=== PATIENT | male | born 1980 | race American Indian/Alaskan Native ===

== ENCOUNTER 2017-06-03 09:13 | Emergency (ER) | payer OTHER ==
[~2017-06-03] VITALS: Ht 185.4 cm; Wt 83.5 kg
[~2017-06-03 09:13] MED LIST: BACTRIM DS TAB1 EACH PO; IBUPROFEN800 MG PO; KEFLEX500 MG PO; NORCO 5-325 TA1 EACH PO
[2017-06-03] MEDS ORDERED: LAMISIL AT12 GM TOP (09:33)
== END 2017-06-03 09:40 | disposition home or self-care (01) ==
LOC: ED 09:13
DX: Z00.8 Encounter for other general examination (principal)

== ENCOUNTER 2021-02-04 21:13 | Emergency (ER) | payer OTHER ==
[~2021-02-04] VITALS: Ht 185.4 cm; Wt 90.7 kg
[~2021-02-04 21:13] MED LIST changes: +LAMISIL AT12 GM TOP
[2021-02-04] MEDS ORDERED: HYDROCODON-ACE1 EA10 PO (22:27)
== END 2021-02-04 22:44 | disposition home or self-care (01) ==
LOC: ED 21:13
DX: S20.212A Contusion of left front wall of thorax, initial encounter (principal); W01.198A Fall on same level from slipping, tripping and stumbling with subsequent striking against other object, initial encounter; F17.200 Nicotine dependence, unspecified, uncomplicated; Z79.899 Other long term (current) drug therapy
CPT/HCPCS: 71101; 99283-25